=== PATIENT | male | born 1990 | race Caucasian/White ===

== ENCOUNTER 2017-08-22 13:54 | Observation (INO) ==
[2017-08-22 15:32] LABS: Basophils # 0.1 K/mcL (0.0-0.2); Basophils % 0.6 %; Eosinophils # 0.2 K/mcL (0.0-0.6); Eosinophils % 1.6 %; Hematocrit 47.2 % (37.5-50.1); Hemoglobin 15.6 g/dL (12.9-16.9); Immature Granulocytes % 0.8 % (0-4); Lymphocytes # 1.7 K/mcL (0.6-4.6); Lymphocytes % 15.2 %; Mean Corpuscular HGB Conc 33.1 g/dL (31.6-35.5); Mean Corpuscular Hemoglobin 27.6 pg (28.0-33.3); Mean Corpuscular Volume 83.4 fL (83.0-100.0); Mean Platelet Volume 9.9 fL (9.4-12.4); Monocytes # 0.7 K/mcL (0.0-1.3); Monocytes % 6.7 %; Neutrophils # 8.2 K/mcL (1.6-8.9); Platelet Count 258 K/mcL (140-400); Red Blood Count 5.66 M/mcL (4.19-5.50); Red Cell Distribution Width 12.7 % (11.5-14.5); Segmented Neutrophils % 75.1 %
[2017-08-22 15:53] LABS: Alanine Aminotransferase 29 Units/L (7-52); Albumin 4.4 g/dL (3.5-5.7); Albumin/Globulin Ratio 1.5 (1.1-2.2); Alkaline Phosphatase 61 Units/L (34-104); Aspartate Amino Transferase 21 Units/L (13-39); BUN/Creatinine Ratio 12 (6-26); Bilirubin,Total 0.4 mg/dL (0.3-1.0); Blood Urea Nitrogen 14 mg/dL (6-20); Calcium 9.9 mg/dL (8.6-10.3); Carbon Dioxide 29 mEq/L (23-29); Chloride 105 mEq/L (98-107); Glucose 98 mg/dL (70-105); Osmolality,Calculated 288 (280-300); Potassium 4.3 mEq/L (3.5-5.1); Sodium 139 mEq/L (136-145); Total Protein 7.4 g/dL (6.4-8.9); eGFR For African Americans > 60 (> 60); eGFR For Non-African Americans > 60 (> 60)
--- NOTE | 2017-08-22 18:24 | Emergency Department Note ---
Disposition Clinical Impression: Blurred vision, bilateral Chest pain Qualifiers: Chest pain type: unspecified Qualified Code(s): R07.9 - Chest pain, unspecified Disposition: Home, Self-Care Condition: Good Reasons to Return/Additional Instructions: Return to the ED or call your physician if your symptoms return or worsen Check you blood pressure when your symptoms happen Follow-up with your PCP for further evaluation of blood sugar Follow-up with Dr. Anguiano (ophthalmology) for further evaluation of visual acuity Referrals: Elizabeth López CNP [Primary Care Provider] - Babak Anguiano DO [Non-Partnered Physician] - General Adult HPI - General Chief complaint: ED Chest Pain Stated complaint: Blurred vision/CP or Anxiety Time Seen by Provider: 08/22/17 17:52 Source: patient Mode of arrival: ambulatory Limitations: no limitations Nursing Notes Reviewed: Yes Vital Signs Reviewed: Yes (BP elevated 160/89) - History of Present Illness HPI Narrative: 27 year old male with PMH of anxiety presenting to the ED with complaints of blurred vision, chest pain, and anxiety. He reports intermittent brief episodes of "narrowing" blurred vision for the past month. Today he experienced central chest pain which was new, but not assocaited with nausea, diaphoresis, dyspnea, or exertion. These episodes are very brief, but sometimes happen multiple times a day. They are associated with some sharp left hand pain and sharp right foot pain. One time his reports his pupils looked dilated. He has experienced more frequent headaches over this time period, but not directly associated with his blurred vision. He denies any trauma, injuries, med changes, syncope, or falls. He denies fevers, chills, recent illnesses, numbness, weakness, or difficulty with gait. Onset (ago): hour(s) (6-7) Location: chest Radiation: non-radiation Pain Scale: 0 Quality: other (pressure) Consistency: constant, now resolved Associated symptoms: Reports: chest pain, other (blurred vision) - Related Data Allergies Allergy/AdvReac Type Severity Reaction Status Date / Time No Known Allergies Allergy Verified 08/22/17 14:28 Review of Systems: As Per HPI Past Medical History - Past Medical History Medical history: Reports: no medical history Psychiatric history: Reports: anxiety - Social History Smoking Status: Never smoker Smokeless Tobacco Status: Yes Alcohol use: Reports: rarely Drug use: Reports: none Physical Exam - General Limitations: no limitations General appearance: alert - Head Head exam: atraumatic, normocephalic - Eye Eye exam: Present: normal appearance, PERRL, EOMI - ENT ENT exam: mucous membranes moist - Chest Chest inspection: Present: symmetric chest wall rise - Respiratory Respiratory exam: Present: normal lung sounds bilaterally - Cardiovascular Cardiovascular exam: Present: regular rate, normal rhythm, normal heart sounds - Extremities Exam Extremities exam: Present: normal inspection - Neurological Exam Neurological exam: Present: alert, oriented X3, CN II-XII intact, reflexes normal - Expanded Neurological Exam Motor strength - LUE: 5/5 Motor strength - RUE: 5/5 Motor strength - LLE: 5/5 Motor strength - RLE: 5/5 Sensory exam upper extremity: light touch: Normal Sensory exam lower extremity: light touch: Normal DTR: bicep (L): 2+, bicep (R): 2+, patellar (L): 2+, patellar (R): 2+ - Psychiatric Psychiatric exam: Present: normal affect, normal mood - Skin Skin exam: Present: warm, dry, intact Course Vital Signs Temperature 98.1 F 08/22/17 14:28 Pulse Rate 76 08/22/17 14:28 Respiratory Rate 20 08/22/17 14:28 Blood Pressure 160/89 08/22/17 14:28 O2 Sat by Pulse Oximetry 96 08/22/17 14:28 Temperature 98.1 F 08/22/17 14:28 Pulse Rate 102 08/22/17 18:12 Respiratory Rate 16 08/22/17 18:12 Blood Pressure 146/102 08/22/17 18:12 O2 Sat by Pulse Oximetry 98 08/22/17 18:12 Oxygen Delivery Oxygen Delivery Room Air Medical Decision Making - MDM Narrative Medical decision making narrative: CBC and CMP normal. EKG shows NSR with no ischemic changes. Trop negative. Chest x-ray shows no acute abnormality. Chest pain unlikely cardiac in nature, with a strong association with anxiety. His blurred vision could be related to blood sugar, visual acuity changes, anxiety, or blood pressure (elevated today, but not normal for him). I do not think he needs further neuro work-up or images at this time. He will follow-up with his PCP and with Opthamolgy, Dr. Anguiano, for further evaluation. He and his family are in agreement with this plan. - Lab Data Lab results reviewed: Yes I reviewed the patient's lab results. Result diagrams: 08/22/17 15:24 08/22/17 15:24 Lab Results 08/22/17 08/22/17 08/22/17 Range/Units 15:24 15:24 15:24 WBC 11.0 (4.3-11.1) K/mcL RBC 5.66 H (4.19-5.50) M/mcL Hgb 15.6 (12.9-16.9) g/dL Hct 47.2 (37.5-50.1) % MCV 83.4 (83.0-100.0) fL MCH 27.6 L (28.0-33.3) pg MCHC 33.1 (31.6-35.5) g/dL RDW 12.7 (11.5-14.5) % Plt Count 258 (140-400) K/mcL MPV 9.9 (9.4-12.4) fL Immature Gran % 0.8 (0-4) % Seg Neutrophils % 75.1 % Lymphocytes % 15.2 % Monocytes % 6.7 % Eosinophils % 1.6 % Basophils % 0.6 % Neutrophils # 8.2 (1.6-8.9) K/mcL Lymphocytes # 1.7 (0.6-4.6) K/mcL Monocytes # 0.7 (0.0-1.3) K/mcL Eosinophils # 0.2 (0.0-0.6) K/mcL Basophils # 0.1 (0.0-0.2) K/mcL Sodium 139 (136-145) mEq/L Potassium 4.3 (3.5-5.1) mEq/L Chloride 105 (98-107) mEq/L Carbon Dioxide 29 (23-29) mEq/L BUN 14 (6-20) mg/dL Creatinine 1.13 (0.70-1.30) mg/dL Est GFR ( Amer) > 60 (> 60) Est GFR (Non-Af Amer) > 60 (> 60) BUN/Creatinine Ratio 12 (6-26) Glucose 98 (70-105) mg/dL Calculated Osmolality 288 (280-300) Calcium 9.9 (8.6-10.3) mg/dL Total Bilirubin 0.4 (0.3-1.0) mg/dL AST 21 (13-39) Units/L ALT 29 (7-52) Units/L Alkaline Phosphatase 61 (34-104) Units/L Troponin I < 0.03 (< 0.04) ng/mL Serum Total Protein 7.4 (6.4-8.9) g/dL Albumin 4.4 (3.5-5.7) g/dL Globulin 3.0 (2.4-3.5) g/dL Albumin/Globulin Ratio 1.5 (1.1-2.2) - EKG Data EKG #1 EKG shows normal: sinus rhythm Rate: normal Obion/QRS: normal Interpretation: no acute changes, normal EKG
--- NOTE | 2017-08-22 18:33 | Emergency Department Note ---
START Narrative - START START: I examined this patient and my medical decision-making was reviewed with the Resident Physician. I agree with the documented findings, disposition and treatment plan as described except to the extent set forth below. 27-year-old male presents to the ER with visual disturbances. States it has been intermittent but is been happening more frequently. Explain that this could be related to a possible structural eye problem versus hypertension versus sugar abnormalities versus anxiety. He will follow up with his PCP to get some of his sugars evaluated. He has a blood pressure machine at his mother 's house. He will follow up with Dr. Anguiano with ophthalmology this week. He will be given as follow-up information for that. His lab work is unremarkable. EKG negative. Chest x-ray negative.
[2017-08-22 19:43] LABS: Thyroid Stimulating Hormone 1.729 mcIU/mL (0.340-5.600)
[2017-08-22] MEDS ORDERED: Mag Hydrox/Al Hydrox/Simeth 30 ML UDC PO PRN (21:14)
[2017-08-22] MEDS ORDERED: Acetaminophen 325 MG TABLET PO PRN (21:14)
[2017-08-22] MEDS ORDERED: *HR* HYDROcodone/Acet 5/325 mg TABLET PO PRN (21:14)
[2017-08-22] MEDS ORDERED: *HR* Promethazine 25 MG/ML VIAL IVP PRN (21:14)
[2017-08-22] MEDS ORDERED: Naloxone 0.4 MG/ML INJ IVP PRN (21:14)
[2017-08-22] MEDS ORDERED: Ondansetron 4 MG/2 ML VIAL IVP PRN (21:14)
[2017-08-23] MEDS: 0.9 % Sodium Chloride 1,000 ML IVC SCH ×2 (00:48→08:30)
--- NOTE | 2017-08-23 03:01 | Internal Med History&Physical ---
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 Since he had fluctuations in BP - Did Stat CT of Head - no acute ICH noticed Cont close monitoring TSH - WNL need out pt f/u with Opth counseled about prevention (2) Tachycardia Current visit: Yes Status: Acute Mostly due to anxiety Now he is in NSR Reviewed EKG from ER - NSR, NO acute ischemic changes (3) HTN (hypertension) Current visit: Yes Status: Acute fluctuation could be due to anxiety + Metabolic syndrome will cont monitoring with out any medications for now Check FLP in AM Qualifiers: Hypertension type: essential hypertension Qualified Code(s): I10 - Essential (primary) hypertension (4) Morbid obesity Current visit: Yes Status: Acute Counseled to loose weight (5) Metabolic syndrome Current visit: Yes Status: Acute will check HbA1C Internal Medicine - H&P: HPI Chief complaint: Blurry vision / Palpitations Admitted From: Emergency Dept Plans for Post Hospital Care: Home History of present illness: Mr. 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 He reports intermittent brief episodes of "narrowing" blurred vision for the past month. These episodes are very brief, but sometimes happen multiple times a day. They are associated with some sharp left hand pain and sharp right foot pain. Denied any nausea / vomiting / diaphoresis. He also c/o some headaches. In the ER his BP seems to be in 160's and his HR in 140's. Past Med Surg Social Fam HX - Past Medical History Medical history: no medical history Psychiatric history: anxiety - Past Surgical History Surgical History: no surgical history - Social History Smoking Status: Never smoker Smokeless Tobacco Status: Yes Alcohol use: rarely Drug use: none - Family History Mother Living Status: Still Living Hx Family Cardiac Disorders: No Hx Family Respiratory Disorders: No Hx Family Cancer: No Hx Family GI Disorders: No Hx Family Genitourinary Disorders: No Hx Family Endocrine Disorder: No Hx Family Musculoskeletal Disorders: No Hx Family Neuromuscular Disorders: No Hx Family Neurologic Disorders: No Hx Family HEENT Disorders: No Hx Family Autoimmune Disorders: No Hx Family Reproductive Disorders: No Hx Family Psychosocial Disorders: No Hx Family Medical Disorders: No - Additional Family History Additional family history: Reviewed.. denied any stroke's in the family Internal Medicine - H&P: Meds Omeprazole [PriLOSEC] 40 mg PO DAILY 08/22/17 [History] Ranitidine HCl [Zantac] 150 mg PO BID PRN 08/22/17 [History] buPROPion HCl [Bupropion HCl Sr] 200 mg PO BID 08/22/17 [History] 3 Allergy/AdvReac Type Severity Reaction Status Date / Time No Known Allergies Allergy Verified 08/22/17 14:28 All Systems PM: A 10-system review of systems was performed and is negative for pertinent findings except as documented above in the HPI. Review of systems: Reviewed all the systems, everything is benign except the systems and symptoms I mentioned in HPI - Constitutional Vitals: Temp Pulse Resp BP Pulse Ox 98.3 F 78 17 136/77 94 08/22/17 23:09 08/22/17 23:09 08/22/17 23:09 08/22/17 23:09 08/22/17 23:09 General appearance: Present: cooperative, A&O X 3, answers questions appropriately - Head Head exam: Present: atraumatic, normal inspection - Neck Neck exam general surgery: Present: supple - Respiratory Respiratory exam: Present: decreased breath sounds. Absent: rales, respiratory distress, rhonchi, wheezes - Cardiovascular Cardiovascular exam: Present: +S1, +S2, tachycardia. Absent: systolic murmur - GI/Abdominal GI/Abdominal exam: Present: normal bowel sounds, soft. Absent: guarding, rebound, rigid, tenderness - Extremities Exam Extremities exam: Absent: calf tenderness, pedal edema, tenderness - Back Exam Back exam: Absent: CVA tenderness (L), CVA tenderness (R) - Neurological Exam Neurological exam: Present: alert, CN II-XII intact, oriented X3, no focal deficits, strengths equal and symetr throughout. Absent: pronater drift, facial droop, speech deficit - Psychiatric Psychiatric exam: Present: normal affect, normal mood - Skin Skin exam: Absent: rash Internal Med - H&P Results - Labs CBC & Chem 7: 02/12/18 15:24 08/22/17 15:24
[2017-08-23 06:31] LABS: Chol/HDL Ratio 4.1 (0-4.9)
[2017-08-23 10:51] VITALS: BP 126/78
--- NOTE | 2017-08-23 10:56 | Discharge Summary ---
Date of Encounter: 08/23/17 Time of Encounter: 09:40 - Discharge Diagnosis (1) Blurred vision, bilateral Priority: Secondary Status: Acute Comments: Patient reports one-month history of intermittent blurred vision with "narrowing " blackness around the edges. He denies actual syncopal episodes but reports that he does have associated palpitations, and anxiety. He reports left hand pain and right foot pain with these episodes. He denies nausea, vomiting, diaphoresis or chest pain. She presented to the emergency department with hypertension with systolic blood pressure in the 160s, diastolic was greater than 90 and he was tachycardic. Patient reports increased blurred vision due to eyestrain after working with computer all day at work. Most likely cause of blurred vision. Narrowing of blurred vision most likely caused by anxiety. All imaging was negative. EKG was normal sinus without any ST changes. 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 Chest X-Ray 08/22/17 14:32 IMPRESSION: Negative chest x-ray. No evidence of acute cardiopulmonary disease. D/ / Feliciano Trujillo MD / Feliciano Trujillo MD Interpreting Provider: Feliciano Trujillo MD Head CT 08/22/17 21:19 IMPRESSION: No acute intracranial abnormality. D/ / 08/22/2017 22:16:42 Azeem Fitzpatrick MD / genny Interpreting Provider: Azeem Fitzpatrick MD (2) HTN (hypertension) Priority: Secondary Status: Acute Comments: Patient with several readings of hypertension, returns to baseline. Most likely due to anxiety. Patient even states that he noted when he was no longer anxious in the emergency department, his blood pressure returned to normal. Patient also has metabolic syndrome. Discussed at length needed lifestyle modification and reasons for not starting on hypertensive medications. Patient agreed and verbalized understanding. Patient is normotensive this morning. Discussed with patient recording multiple blood pressures and provide NovoLog for primary care. Qualifiers: Hypertension type: essential hypertension Qualified Code(s): I10 - Essential (primary) hypertension (3) Metabolic syndrome Priority: Secondary Status: Chronic Comments: A1c 5.0. Pulse is elevated at 188, cholesterol 140. Patient with central obesity as well as hypertensive blood pressure readings. Discussed lifestyle modifications including diet and exercise. (4) Tachycardia Priority: Secondary Status: Resolved Comments: Most likely related to anxiety. He has episodes of vision changes, tachycardia , hypertension. Patient notes himself that blood pressure and pulse returned to normal when he is less anxious. Lifestyle modifications. Follow with primary care. (5) Morbid obesity Priority: Secondary Status: Chronic Comments: Chronic. Discussed lifestyle modifications. (6) DVT prophylaxis Priority: Secondary Status: Acute Comments: Pt has been ambulatory. - Discharge Medications Home Medications: Omeprazole [PriLOSEC] 40 mg PO DAILY 08/22/17 [History] Ranitidine HCl [Zantac] 150 mg PO BID PRN 08/22/17 [History] buPROPion HCl [Bupropion HCl Sr] 200 mg PO BID 08/22/17 [History] Allergies/Adverse Reactions: 3 Allergy/AdvReac Type Severity Reaction Status Date / Time No Known Allergies Allergy Verified 08/22/17 14:28 Date of admission: 08/22/17 22:47 Primary care physician: Elizabeth López CNP Discharging clinician: Sharon Faria Anticipated date of discharge: 08/23/17 - Patient Status Disposition: Home, Self-Care Condition: Good Functional capacity at discharge: independent ambulation Overall status at discharge: patient is back to baseline - Discharge Instructions Follow Up With: Elizabeth López CNP [Primary Care Provider] - Additional Instructions: Follow up with your PCP in the next 7-10 days Follow up with Dr. Chery as we discussed. Take your medications as directed. Return to the ER as needed for any other problems or concerns. Return to your normal activities as tolerated. You might want to discuss counseling or additional medications or adjustments for your anxiety with Elizabeth when you follow up. Make sure that you are drinking plenty of fluids. Try to increase your activity and cut calories and start healthy lifestyle modifications. Take your blood pressure daily and share readings with PCP when you follow up. Hospital course: Mr. Luis is a 27 year old male with no significant medical history who presents to the ED with c/o 1 month history of blurred vision with tunnel vision , tachycardia, and hypertension. He denies chest pain, n/v/d, but does reports associated palpitations and anxiety. Head CT negative for acute infarct, chest xray negative. A1c 5.0% and lipid panel WNL other than elevated triglycerides. HTN has resovled and I have recommended that he follow up with PCP and monitor his own BP and share results at follow up, as well as implement diet and lifestyle modifications. He is currently on Bupropion for anxiety and will continue. Consider discussing counseling or addition/adjustment of medication for anxiety at follow up, as well. Pt's vitals and labs are stable and WNL. Pt is ready for discharge with appropriate follow ups. Pt has a follow up visit with for vision changes. - Time Spent with Patient Total time spent providing and/or coordinating discharge services: Less than 30 minutes - Constitutional Vitals: Temp Pulse Resp BP Pulse Ox 97.4 F L 70 17 124/77 95 08/23/17 07:49 08/23/17 07:49 08/23/17 07:49 08/23/17 07:49 08/23/17 07:49 General appearance: Present: cooperative, A&O X 3, morbidly obese, pleasant, no acute distress, answers questions appropriately - Head Head exam: Present: atraumatic, normal inspection, normocephalic - Eye Eye exam: Present: normal appearance, conjuntiva pink, sclera anicteric - Neck Neck exam general surgery: Present: normal inspection, supple, trachea midline. Absent: lymphadenopathy, tenderness - Respiratory Respiratory exam: Present: decreased breath sounds, CTAB. Absent: accessory muscle use, rales, respiratory distress, rhonchi, wheezes - Cardiovascular Cardiovascular exam: Present: RRR, +S1, +S2. Absent: diastolic murmur, gallop, rubs, systolic murmur - GI/Abdominal GI/Abdominal exam: Present: normal bowel sounds, soft. Absent: distended, hepatomegaly, tenderness - Extremities Exam Extremities exam: Present: normal capillary refill, normal inspection, warm, radial pulses palpable and symmetrical. Absent: calf tenderness, cyanotic, joint swelling, pedal edema, tenderness - Neurological Exam Neurological exam: Present: alert, oriented X3, no focal deficits. Absent: facial droop, speech deficit - Skin Skin exam: Present: dry, intact, normal color, warm. Absent: rash
--- NOTE | 2017-08-23 18:38 | Electrocardiograph Report ---
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
--- NOTE | 2017-08-23 18:40 | Electrocardiograph Report ---
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
== END 2017-08-23 12:33 | disposition home or self-care (01) ==
LOC: 3BNU 13:54 → EMEROO 13:54 → 3BNU 22:36
PROVIDERS: ADMIT Registered Nurse; ATTEND Registered Nurse